=== PATIENT | male | born 1965 | race Two or more races ===

== ENCOUNTER 2019-08-28 18:54 | Emergency (ER) | payer SELFPAY ==
[~2019-08-28] VITALS: Ht 180.3 cm; Wt 83.0 kg
[2019-08-28 19:45] LABS: BASOPHILS % 0.5 % (0.0-2.0); CHLORIDE 102 mEq/L (98-107); EOSINOPHILS % 0.2 % (0.0-5.0); HEMATOCRIT. 39.3 % (42.0-52.0); HEMOGLOBIN. 13.6 g/dL (14.0-18.0); LYMPHOCYTES % 40.1 % (20.0-50.0); MEAN CORPUSCULAR HEMOGLOBIN 32.5 pg (28.0-32.0); MEAN CORPUSCULAR VOLUME 94.2 fL (80.0-94.0); MEAN PLATELET VOLUME 7.7 fl (7.4-10.4); MONOCYTES % 14.4 % (2.0-8.0); NEUTROPHILS % 44.8 % (40.0-76.0); PLATELET 116 x1000/uL (130-400); RED BLOOD CELL COUNT 4.17 mill/uL (4.7-6.1); RED CELL DISTRIBUTION WIDTH 15.4 % (11.6-14.6)
[2019-08-28 19:58] LABS: ETHANOL BLOOD 577 mg/dL
[2019-08-29] MEDS ORDERED: LORAZEPAM 2MG/ML CPJ IV STA (06:24)
[2019-08-29] MEDS ORDERED: FOLIC ACID 1 MG, THIAMINE HCL 100 MG, MVI, ADULT NO.1 10 ML in DEXTROSE 5% WATER 1,000 ML IV ONE ×4 (06:30)
[2019-08-29] MEDS ORDERED: LORAZEPAM 1MG TABLET PO ONE (11:30)
[2019-08-29 12:07] VITALS: BP 105/65
== END 2019-08-29 12:10 | disposition home or self-care (01) ==
LOC: ER 18:54 → EDBD 18:54 → ER 08-29 12:10
DX: F10.129 Alcohol abuse with intoxication, unspecified (principal); Y90.8 Blood alcohol level of 240 mg/100 ml or more; Z59.0 Homelessness
CPT/HCPCS: 36415; 80053; 80320; 84484; 85025; 93005; 96365; 96366; 96375; 99284; J2060; J3411; J3490; J7070; Z7610; G0480

== ENCOUNTER 2023-05-10 22:02 | Emergency (ER) | payer OTHER ==
[~2023-05-10] VITALS: Ht 170.2 cm; Wt 79.0 kg
[2023-05-10 22:04] VITALS: O2SAT 95
[2023-05-11 00:21] LABS: BASOPHILS % 0.9 % (0.0-2.0); EOSINOPHILS % 0.8 % (0.0-5.0); HEMATOCRIT. 31.7 % (42.0-52.0); LYMPHOCYTES % 39.3 % (20.0-50.0); MEAN CORPUSCULAR HGB CONC 31.6 g/dL (31.0-37.0); MEAN CORPUSCULAR VOLUME 79.2 fL (80.0-94.0); MEAN PLATELET VOLUME 7.6 fl (7.4-10.4); MONOCYTES % 11.3 % (2.0-8.0); NEUTROPHILS % 47.7 % (40.0-76.0); PLATELET 426 x1000/uL (130-400); RED CELL DISTRIBUTION WIDTH 24.3 % (11.6-14.6); WHITE BLOOD COUNT 7.8 x1000/uL (4.5-11.0)
[2023-05-11 00:22] LABS: ADD RBC MORPHOLOGY YES; DIFFERENTIAL COMMENT 1
[2023-05-11 00:44] LABS: AMMONIA 34 uMol/L (<32)
[2023-05-11] MEDS ORDERED: SODIUM CHLORIDE 0.9% 1,000 ML IV NR (00:45)
[2023-05-11] MEDS ORDERED: ONDANSETRON HCL 4MG/2ML INJ IV NR (00:45)
[2023-05-11 00:53] LABS: ACETAMINOPHEN < 2 ug/mL (10-30); ALANINE AMINOTRANSFERASE 29 IU/L (10-49); ALBUMIN 3.7 g/dL (3.2-4.8); ASPARTATE AMINOTRANSFERASE 30 IU/L (<34); BILIRUBIN TOTAL 0.2 mg/dL (0.1-1.0); CALCIUM 8.2 mg/dL (8.7-10.4); CARBON DIOXIDE 27 mEq/L (21-32); CHLORIDE 112 mEq/L (98-107); CREATINE KINASE 100 IU/L (46-171); CREATININE 0.7 mg/dL (0.6-1.3); ETHANOL BLOOD 340 mg/dL (<10); GLUCOSE 98 mg/dL (70-105); PROTEIN TOTAL 6.2 g/dL (6.0-8.3); SODIUM 148 mEq/L (136-145); UREA NITROGEN BLOOD 10 mg/dL (9-23)
[2023-05-11] MEDS ORDERED: AMOX1TAB16 MT (06:10)
[2023-05-11] MEDS ORDERED: ONDA4TAB50 MT (06:10)
[2023-05-11] MEDS ORDERED: IBUP-2029 MT (06:10)
[2023-05-11] MEDS ORDERED: AMOXICILLIN/POTASSIUM CLAVULANATE 875/125MG TAB PO ONE (06:15)
[2023-05-11 08:20] VITALS: BP 130/72; PULSE 80; RESP 20; TEMP 97.7
[2023-05-11 10:53] LABS: MICROCYTOSIS 3+; PLATELET ESTIMATE SLIGHTLY INCREASED
== END 2023-05-11 09:09 | disposition home or self-care (01) ==
LOC: ER 22:02
DX: S02.2XXA Fracture of nasal bones, initial encounter for closed fracture (principal); F10.129 Alcohol abuse with intoxication, unspecified; W18.30XA Fall on same level, unspecified, initial encounter; Y93.89 Activity, other specified; Y92.89 Other specified places as the place of occurrence of the external cause; Y99.8 Other external cause status; Y90.8 Blood alcohol level of 240 mg/100 ml or more
CPT/HCPCS: 80053; 80307; 80329; 80320; 82140; 82550; 83690; 85025; 36415; 71045; 93005; 99285; 70450; 96374; J2405; G0480

== ENCOUNTER 2023-09-25 17:50 | Emergency (ER) | payer OTHER ==
[~2023-09-25] VITALS: Ht 182.9 cm; Wt 65.0 kg
[~2023-09-25 17:50] MED LIST: AMOX1TAB16 MT; IBUP-2029 MT; ONDA4TAB50 MT
[2023-09-25 17:54] VITALS: O2SAT 96
[2023-09-25 18:14] LABS: BASOPHILS % 0.7 % (0.0-2.0); EOSINOPHILS % 0.4 % (0.0-5.0); HEMATOCRIT. 37.8 % (42.0-52.0); HEMOGLOBIN. 12.6 g/dL (14.0-18.0); LYMPHOCYTES % 48.3 % (20.0-50.0); MEAN CORPUSCULAR HEMOGLOBIN 28.2 pg (28.0-32.0); MEAN CORPUSCULAR HGB CONC 33.3 g/dL (31.0-37.0); MEAN CORPUSCULAR VOLUME 84.5 fL (80.0-94.0); MEAN PLATELET VOLUME 7.4 fl (7.4-10.4); MONOCYTES % 14.8 % (2.0-8.0); NEUTROPHILS % 35.8 % (40.0-76.0); PLATELET 180 x1000/uL (130-400); RED BLOOD CELL COUNT 4.47 mill/uL (4.7-6.1); RED CELL DISTRIBUTION WIDTH 18.3 % (11.6-14.6); WHITE BLOOD COUNT 5.5 x1000/uL (4.5-11.0)
[2023-09-25 18:23] LABS: CHLORIDE 110 mEq/L (98-107); POTASSIUM 3.8 mEq/L (3.5-5.1); SODIUM 143 mEq/L (136-145)
[2023-09-25 18:24] LABS: CARBON DIOXIDE 24 mEq/L (21-32)
[2023-09-25 18:25] LABS: CALCIUM 8.7 mg/dL (8.7-10.4)
[2023-09-25 18:29] LABS: CREATININE 0.8 mg/dL (0.6-1.3); GLUCOSE 94 mg/dL (70-105)
[2023-09-25 18:30] LABS: ETHANOL BLOOD 300 mg/dL (<10); UREA NITROGEN BLOOD 8 mg/dL (9-23)
[2023-09-25 18:31] LABS: ALANINE AMINOTRANSFERASE 46 IU/L (10-49); ASPARTATE AMINOTRANSFERASE 58 IU/L (<34)
[2023-09-25 18:32] LABS: BILIRUBIN TOTAL 0.5 mg/dL (0.1-1.0); PROTEIN TOTAL 7.8 g/dL (6.0-8.3)
[2023-09-25] MEDS: CHLORDIAZEPOXIDE 25MG CAPSULE PO ONE (23:34)
[2023-09-25 23:44] VITALS: BP 128/70; PULSE 80; RESP 15; TEMP 98.4
== END 2023-09-25 23:45 | disposition home or self-care (01) ==
LOC: ER 17:50
DX: F10.129 Alcohol abuse with intoxication, unspecified (principal); Z87.891 Personal history of nicotine dependence; Y90.8 Blood alcohol level of 240 mg/100 ml or more
CPT/HCPCS: 36415; 80053; 80320; 85025; 99283; G0480